=== PATIENT | male | born 1980 | race Caucasian/White ===

== ENCOUNTER → 2018-01-20 | Emergency (ER) | payer OTHER ==
[~2018-01-20] VITALS: Ht 172.7 cm; Wt 83.9 kg
[~2018-01-20] MED LIST: AMOX-CLAV 875-1 EACH PO; ULTRACET PO; URIN D.S. TABL1 EACH PO
== END | disposition home or self-care (01) ==
LOC: ER 21:16
DX: N30.80 Other cystitis without hematuria (principal); N39.0 Urinary tract infection, site not specified; R50.9 Fever, unspecified

== ENCOUNTER → 2018-01-20 | Emergency (ER) | payer OTHER ==
[~2018-01-20] VITALS: Ht 172.7 cm; Wt 83.9 kg
== END | disposition home or self-care (01) ==
LOC: ER 15:15
DX: N30.80 Other cystitis without hematuria (principal); N39.0 Urinary tract infection, site not specified